=== PATIENT | female | born 1985 | race Caucasian/White ===

== ENCOUNTER 2017-02-19 18:00 | Emergency (ER) | payer OTHER ==
[~2017-02-19] VITALS: Ht 162.6 cm; Wt 81.6 kg
--- NOTE | 2017-02-19 19:07 | RADIOLOGY REPORT ---
EXAMINATION: XR HAND, RIGHT CLINICAL INFORMATION: Right hand pain and swelling. Evaluate for a fracture. COMPARISON: No relevant prior studies are available for comparison. TECHNIQUE: AP, lateral, and oblique views of the right hand. FINDINGS: The bones and soft tissues are normal. No fracture. Alignment is anatomic. Joint spaces are maintained. No erosions or soft tissue calcifications. IMPRESSION: Normal right hand.
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
[2017-02-19] MEDS ORDERED: PANTOPRAZOLE SO40 M1 PO (19:50)
[2017-02-19] MEDS ORDERED: TRAMADOL HCL50 M1 (19:50)
[2017-02-19] MEDS ORDERED: METRONIDAZOLE500 M1 PO (19:51)
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
[2017-02-19] MEDS ORDERED: IBUPROFEN600 M1 PO (20:50)
[2017-02-19] MEDS ORDERED: CYCLOBENZAPRINE10 M1 PO (20:50)
[2017-02-19] MEDS ORDERED: PERCOCET 5-3251 EACH PO (20:50)
[2017-02-19 20:56] VITALS: BP 142/88
== END 2017-02-19 20:57 ==
LOC: ERH 18:00
DX: S16.1XXA Strain of muscle, fascia and tendon at neck level, initial encounter (principal); S63.610A Unspecified sprain of right index finger, initial encounter; V49.40XA Driver injured in collision with unspecified motor vehicles in traffic accident, initial encounter; Y92.411 Interstate highway as the place of occurrence of the external cause
CPT/HCPCS: 72050; 73030-LT; 73130-RT

== ENCOUNTER 2017-04-09 21:33 | Inpatient (IN) | payer OTHER ==
[~2017-04-09] VITALS: Ht 162.6 cm; Wt 80.9 kg
[~2017-04-09 21:33] MED LIST: CYCLOBENZAPRINE10 M1 PO; IBUPROFEN600 M1 PO; METRONIDAZOLE500 M1 PO; PANTOPRAZOLE SO40 M1 PO; PERCOCET 5-3251 EACH PO; TRAMADOL HCL50 M1
--- NOTE | 2017-04-09 21:48 | NUR ---
PT TO ED FOR +SI THOUGHTS "I WAS GOING TO TAKE EVERY PILL I HAD". DENIES HI. DENIES ETOH. LAST USED MARIJUANA YESTERDAY. IS CALM AND COOPERATIVE.
[2017-04-09 21:58] LABS: ABSOLUTE BASOPHIL COUNT 0 /CUMM (0.0-0.2); ABSOLUTE EOSINOPHIL COUNT 0.2 /CUMM (0.0-0.7); ABSOLUTE GRANULOCYTE CT 3.9 /CUMM (1.4-6.5); ABSOLUTE MONOCYTE COUNT 0.6 /CUMM (0.10-0.60); BASOPHIL % 0.5 % (0.0-2.0); EOSINOPHIL % 2.3 % (0-5); GRANULOCYTE % 44.7 % (42.2-75.2); MEAN CORPUSCULAR HGB 27.5 PG (27.0-31.0); MEAN CORPUSCULAR HGB CONC 33.3 G/DL (33.0-37.0); MEAN CORPUSCULAR VOLUME 82.7 FL (81.0-99.0); MEAN PLATELET VOLUME 6.6 FL (7.4-10.4); PLATELET COUNT 267 /CUMM (130-400); RBC DISTRIBUTION WIDTH 17.1 % (11.5-14.5); RED BLOOD CELL CT 4.72 /CUMM (4.20-5.40); WHITE BLOOD CELL COUNT 8.8 /CUMM (4.8-10.8)
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
--- NOTE | 2017-04-09 22:22 | NUR ---
SECURITY AT BEDSIDE.
--- NOTE | 2017-04-09 23:45 | NUR ---
PT MEDICATED WITH MOTRIN 600MG FOR "HEADACHE". DR MONTOYA AT BEDSIDE FOR EVAL
--- NOTE | 2017-04-10 00:29 | NUR ---
BOXED LUNCH PROVIDED TO PT
--- NOTE | 2017-04-10 00:55 | NUR ---
PT MEDICATED WITH BENADRYL 50MG PO SLEEP AID
[2017-04-10] MEDS ORDERED: ULTRAM50 M1 PO (00:57)
--- NOTE | 2017-04-10 02:58 | NUR ---
PT RESTING COMFORTABLY ON STRETCHER. SITTER PRESENT
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
--- NOTE | 2017-04-10 05:09 | NUR ---
PT MED WITH 1 MG PO ATIVAN FOR ANXIETY
--- NOTE | 2017-04-10 06:51 | NUR ---
PATIENT EASILY AROUSABLE FOR VITAL SIGNS, OFFERS NO COMPLAINTS. PENDING PSYCH EVAL IN AM
--- NOTE | 2017-04-10 07:21 | NUR ---
ASSUMED CARE OF PT WHO IS CURRENTLY SLEEPING. RR EVEN AND UNLABORED. SITTER REMAINS AT DOORWAY. PT WAITING FOR CRISIS EVAL.
--- NOTE | 2017-04-10 09:30 | NUR ---
PT AWARE WAITING FOR CRISIS EVALUATION. NO COMPLAINTS AT THIS TIME. SITTER REMAINS IN DOORWAY
--- NOTE | 2017-04-10 11:20 | NUR ---
ASSUMED CARE OF PT FROM BELLE TAMAYO. PT SITTING ON BED CALM AND COOPERATIVE WITH SITTER AT DOOR. PT ASKING WHAT PLAN IS FOR HER. PT REPORTS ANXIETY AND STATES SHE TAKES ATIVAN. WILL MAKE DR WHALEN AWARE.
--- NOTE | 2017-04-10 12:45 | NUR ---
PT REQUESTING PANTOPRAZOLE SO THAT SHE CAN EAT HER LUNCH. DR WHALEN MADE AWARE. PT ALSO RECEIVED A PHONE CALL FROM HER SISTER, SO PT REPORTS THAT HER FAMILY KNOWS WHERE SHE IS AND THAT HER CHILDREN ARE BEING CARED FOR. SITTER AT DOOR.
--- NOTE | 2017-04-10 14:30 | NUR ---
PT MEDICATED WITH PRILOSEC 40MG AND ATIVAN 1MG PO. PT CALM AND COOPERATIVE, ASKING WHEN SHE WOULD BE SEEN BY CRISIS. SITTER AT DOOR.
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
--- NOTE | 2017-04-10 16:10 | NUR ---
PT ASLEEP AT THIS TIME. RESPIRATIONS EQUAL AND UNLABORED AT 16/MINUTE. SITTER AT DOOR.
--- NOTE | 2017-04-10 17:42 | NUR ---
PT ASLEEP IN ROOM 13. WHEN AWAKE, PT IS CALM AND COOPERATIVE. SITTER AT DOOR. RESPIRATIONS EQUAL AND UNLABORED.
--- NOTE | 2017-04-10 19:10 | NUR ---
PT'S BOYFRIEND TO ROOM 13 TO VISIT. PT CALM AND COOPERATIVE. SITTER AT DOOR.
--- NOTE | 2017-04-10 20:28 | NUR ---
PT LYING ON BED WATCHING TV WITH HER BOYFRIEND. PT CALM AND COOPERATIVE. SITTER AT DOOR.
--- NOTE | 2017-04-10 22:37 | NUR ---
PT MEDICATED WITH TRAZODONE 50MG FOR SLEEP. PT RECENTLY SHOWERED AND CHANGED INTO NEW BLUE SCRUBS. PT CALM AND COOPERATIVE. SITTER AT DOOR.
--- NOTE | 2017-04-11 01:17 | NUR ---
PT SLEEPING, REGULAR RESPIRATIONS NOTED, SITTER REMAINS IN ATTENDANCE
--- NOTE | 2017-04-11 03:30 | NUR ---
PT CONTINUES TO SLEEP. SITTER REMAINS IN ATTENDANCE
--- NOTE | 2017-04-11 06:56 | NUR ---
VSS. PT REQUESTING ATIVAN FOR ANXIETY. DR JIMENEZ MADE AWARE
--- NOTE | 2017-04-11 07:11 | NUR ---
PT MEDICATED WITH 40 MG PRILOSEC AND 1 MG ATIVAN PO. REMAINS CALM AND COOPERATIVE. EATING BREAKFAST. SITTER IN ATTENDANCE
--- NOTE | 2017-04-11 07:27 | NUR ---
ASSUMED CARE, AWAKE, EATING BREAKFAST, MEDICATED WITH ATIVAN 1 MG, PRILOSEC 40 MG.
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
--- NOTE | 2017-04-11 10:04 | NUR ---
AWAITING ADMISSION TO [facility].
--- NOTE | 2017-04-11 10:08 | NUR ---
SLEEPING AT PRESENT.
--- NOTE | 2017-04-11 11:00 | NUR ---
PT'S CHILD AND SISTER VISITING.
--- NOTE | 2017-04-11 13:00 | NUR ---
VISITORS AT BEDSIDE.
--- NOTE | 2017-04-11 15:13 | NUR ---
RECIEVED REPORT FROM REBECCA. ASSUMED CARE OF PT
--- NOTE | 2017-04-11 15:16 | NUR ---
NOTIFIED BY [facility] THAT PT ASKING FOR ATIVAN AND SOMETHING FOR HEADACHE. WILL GIVE ULTRAM AND ATIVAN
[2017-04-11 17:11] VITALS: BP 152/95
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
[2017-04-11 19:53] VITALS: BP 139/88
[2017-04-12 07:50] VITALS: BP 117/78
[2017-04-12 12:16] VITALS: BP 137/78
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
--- NOTE | 2017-04-12 13:35 | NUR ---
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 PT ALSO MET WITH DR. BEGUM TODAY FOR H&P, NO OTHER ISSUES OR COMPLAINTS NOTED, OVERALL COMPLIANT WITH TREATMENT AND ADJUSTING WELL TO THE [facility].
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
[2017-04-12 16:29] VITALS: BP 145/88
--- NOTE | 2017-04-12 16:50 | SOCIAL WORKER TX PLAN PSYCH ---
Treatment Plan - Please Document: - Evidence that there is ongoing collaboration between - the patient and the interdisciplinary team, - including the patient's active participation and - responsibility for engaging in the treatment regimen, - and that the treatment plan is individualized and - relevant to the patient's conditions. - Treatment plan should reflect documentation indicating - that all active therapeutic efforts are included. Strengths/Capabilities: Gainfully employed, supportive family, motivated for tx, insightful Physical Limitations (Interventions): none reported DSM5/PS Stressors/Medical Prob Diagnosis' (DSM 5, Stressors, Medical): Unspecified Depression F32.9, cannabis use d/o f12.20 Treatment Team - Responsibilities of members of the treatment team include: - Medication Management- MD or HONING MACHINE OPERATOR - Medication Administration and Monitoring- Nurse - Group Therapy- Occupational Therapist - 1:1 Therapy,Disch Planning,family involvement-Cutlery Grinder
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
--- NOTE | 2017-04-12 18:00 | NUR ---
PT IS CALM, COOPERATIVE WITH STAFF AND PEERS, AND COMPLIANT WITH UNIT RULES. OFTEN IN MILIEU, INTERACTING WELL WITH OTHERS. CAN BE SLIGHTLY WITHDRAWN, BUT STILL INTERACTS WELL. MOOD IS STABLE, AFFECT APPEARS EUTHYMIC TO FULL RANGE - PT COMPLAINS OF SLIGHT ANXIETY. COMMUNICATION IS ORGANIZED AND APPEARS NORMAL IN ALL RESPECTS, AND APPETITE IS NORMAL. PT DENIES SI AT THIS TIME.
[2017-04-12 20:02] VITALS: BP 152/94
[2017-04-13 08:03] VITALS: BP 124/79
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
--- NOTE | 2017-04-13 11:14 | SOCIAL WORKER PROG NOTE PSYCH ---
Social Work Progress Note Progress Note Called [facility] and spoke with the sign out clerk there in an attempt to determine the court date that Bree was referring to for this Sunday. The sign out clerk said she only saw a case scheduled under her ex for 04/27. She suggested she call the family relations dept. for more information. She provided the number, which was given to Bree. Emily Doreen ELAINE and Maria Victoria met together with Bree today. She complained of a headache and some stuffiness. She stated she slept well. Continues to have alot of racing thoughts and anxiety today. This is her main concern. No panic attacks, but stated she was close to having one last night after her visitors left. Her boyfriend and her Father were here visiting. She informed Emily and Maria Victoria that she has her boyfriend Aiden, but she is also involved with a female Andreia. Aiden, Andreia, and Bree are all seeing eachother. She is interested in having her parents, Aiden, and Andreia in for a family meeting. She talked about how she is concerned and on edge constantly for what her ex is doing. She feels that he is always contemplating his next move in order to get the kids from her. During the meeting though, she disclosed that he is not the biological father of her 9 year old daughter. He is not to have contact with her. When asked if she has any SI, thoughts to hurt herself today? She said no. Any thoughts to hurt anyone else? She disclosed she is so angry with her ex that she might hurt him, but not kill him. Emily Katimaria victoria [place] plans to increase her Abilify dose today. Talked about planning a meeting for Sunday if possible and possible discharge Sunday. Discussed possible referral to [facility] for IOP. She signed releases for parents and her 2 significant others. She chose not to sign a release for DCF at this time. Called Aiden and Nidhi, both stated they can see about coming in Sunday around 3 or 3:30pm. Both told me they would get back to me by Sunday morning. Spoke with Bree's Father who will be here Sunday at 3:30pm. He is concerned about her being "rushed out" of here, stating he had never seen her "break down" like this. Bree shared that she spoke with Emanuel Yang at Family Relations and there is a court appt. for Sunday. He would like a letter faxed to [phone] indicating that she is asking for a continuance. This was done. Review done with [facility] [phone] ext [phone]. Authorized until Sunday.
[2017-04-13 12:37] VITALS: BP 145/89
--- NOTE | 2017-04-13 13:12 | NUR ---
PT IS COMPLIANT AND COOPERATIVE WITH UNIT RULES. PT IS OUT IN THE COMMUNITY INTERACTING WELL WITH STAFF AND PEERS. PT MOOD IS STABLE WITH A EUYTHMIC AFFECT. PT WAS TEARFUL THIS MORNING MISSING HER CHILDREN. PT IS ATTENDING GROUPS. PT DENIES SI THGOUGHTS.
[2017-04-13 16:04] VITALS: BP 142/81
[2017-04-13 20:05] VITALS: BP 149/88
--- NOTE | 2017-04-13 21:25 | NUR ---
Pt is out in the community mood is stable affect is full range cooperative and compliant with the staff. Vital signs are stable appetite is good will continue to monitor the pt overnight.
--- NOTE | 2017-04-14 07:44 | NUR ---
PATIENT SLEPT ALL NIGHT UNTIL 0500, AWAKE EARLY.
[2017-04-14 08:23] VITALS: BP 146/90
--- NOTE | 2017-04-14 11:37 | CP SOUTH PROGRESS NOTE PSYCH ---
Psych (Inpt) Progress Note Progress Note Include the following elements, when applicable: Involvement in the active treatment of the patient with behavioral observations of the patient and the patient's response to the treatment. Review of the ongoing treatment process in the context of the treatment plan. Indication of how multi-disciplinary staff members are carrying out the treatment plan. Plans for future interventions and recommendations for revision of the treatment plan. Liaison with other physicians/providers. Progress Note: Notes reviewed, d/w nursing staff. Met with patient this morning. Pleasant, cooperative, anxious appearing. Perseverative on somatic anxiety and increased dose of benzodiazepines. We discussed at length the concern over ad madie benzo use as well as discussed trying neurontin as ordered PRN for anxiety symptoms. She expressed poor mood, was tearful, and frustrated with her family situation. She denies SI/HI as well as AVH. Vitals reviewed - borderline HTN. No new labs today. MSE: adequately groomed CF surrounded by her laundry which she says is currently drying due to dryer being broken. No abn movements, no pmotor agitation/ retardation. Fair eye contact. Speech wnl. Mood "bad, anxious", affect anxious. TP perseverative, TC focused on anxiety and benzos. Denies SI/HI or AVH. Cognition grossly intact. I/J limited-fair. A/P: Ongoing dysphoria and anxiety symptoms. Continue to provide psychoeducation re: limiting benzo use and other therapeutic options for treating anxiety. Continue present management as per primary team.
--- NOTE | 2017-04-14 12:11 | NUR ---
PT REPORTS FEELING MUCH BETTER THAN WHEN SHE FIRST CAME IN. REPORTS LESS ANXIETY AND LESS DEPRESSED. SHE DENIES ANY THOUGHTS OF SUICIDE OR SELF HARM. SHE INTERACTS WITH STAFF AND PEERS IN A CALM AND APPROPRIATE MANNER. SHE IS COMPLIANT WITH HER MED REGIME
[2017-04-14 12:38] VITALS: BP 136/93
[2017-04-14 16:29] VITALS: BP 152/79
--- NOTE | 2017-04-14 18:37 | NUR ---
PT IS CALM, COOPERATIVE WITH STAFF AND PEERS, AND COMPLIANT WITH UNIT RULES. PT IS OFTEN IN MILIEU, INTERACTING WELL WITH OTHERS. MOOD IS STABLE, AFFECT APPEARS EUTHYMIC TO FULL RANGE, COMMUNICATION IS ORGANIZED AND APPEARS NORMAL IN ALL RESPECTS, AND APPETITE IS NORMAL. PT DENIES SI AT THIS TIME.
[2017-04-14 19:49] VITALS: BP 142/86
--- NOTE | 2017-04-15 06:53 | NUR ---
PATIENT SLEPT ALL NIGHT.
[2017-04-15 07:44] VITALS: BP 125/74
--- NOTE | 2017-04-15 11:36 | NUR ---
PT VISIBLE IN THE MILIEU TODAY. HER GOAL WAS TO DECREASE ANXIETY. PT HAS BEEN PARTICIPATING IN GROUPS, AND INTERACTING POSITIVELY WITH PEERS. PT IS PLEASANT AND COOPERATIVE, SHE DENIES THOUGHTS TO HURT HERSELF WHEN ASKED.
[2017-04-15 12:10] VITALS: BP 143/92
--- NOTE | 2017-04-15 13:28 | CP SOUTH PROGRESS NOTE PSYCH ---
Psych (Inpt) Progress Note Progress Note Include the following elements, when applicable: Involvement in the active treatment of the patient with behavioral observations of the patient and the patient's response to the treatment. Review of the ongoing treatment process in the context of the treatment plan. Indication of how multi-disciplinary staff members are carrying out the treatment plan. Plans for future interventions and recommendations for revision of the treatment plan. Liaison with other physicians/providers. Progress Note: Notes reviewed, d/w nursing staff. Met with patient this morning. Highly dysphoric and anxious. Had spoken with her daughter this morning by phone and reports her daughter is angry with her and wants her to pick her up from the patient's [facility] in [place]. PErseverative regarding court custody case that is pending with her ex . "I just feel like I'm going to explode". REports vague SI without plan or intent - mostly expresses a feeling that "everyone would be better off if I wasn't around", denies HI. Vitals reviewed - borderline HTN. No new labs today. MSE: tearful, adequately groomed CF resting on bed, no pmotor agitation/ retardation. Fair eye contact. Speech wnl. Mood "I feel like I'm going to explode", affect anxious. TP perseverative, TC focused on feelings of failure. Vague SI as noted above. Denies HI or AVH. Cognition grossly intact. I/J limited -fair. A/P: Substantial ongoing depressive and anxious symptoms with ongoing vague SI though no plan or intent to harm self on unit. Continue current management.
[2017-04-15 16:04] VITALS: BP 148/96
--- NOTE | 2017-04-15 16:07 | NUR ---
Patient is A&O X 3, compliant with medication and group therapies. Patient is present in the community interacts appropriately with other peers and staff members, mood is stable for the most period but could be labile/ tearful while relating the reason for her present hospitalization and court date with her ex-. vital sign is stable and WNL, patient denies any thought of self- harm and to someone else.
--- NOTE | 2017-04-15 17:51 | NUR ---
PT IS CALM, COOPERATIVE WITH STAFF AND PEERS,A ND COMPLIANT WITH UNIT RULES. BOTH IN AND OUT OF MILIEU, PT SOMETIMES LEAVES MILEIU TO REST IN PT ROOM. WHILE IN MILIE[facility], PT INTERACTS WELL WITH OTHERS. MOOD IS STABLE, AFFECT APPEARS EUTHYMIC TO FULL RANGE, COMMUNICATION IS ORGANIZED AND APPEARS NORMAL IN ALL RESPECTS, AND APPETITE IS REDUCED. PT DENIES IS AT THIS TIME.
[2017-04-15 19:51] VITALS: BP 148/85
[2017-04-16 07:51] VITALS: BP 131/93
--- NOTE | 2017-04-16 11:06 | SOCIAL WORKER PROG NOTE PSYCH ---
Social Work Progress Note Progress Note Bree came to me immediately upon my arrival. She was anxious about the court meeting this morning. I assured her that I faxed a letter and got a confirmation. She talked about wanting to leave today and feeling ready to do that. She said that she is having a hard time with childcare for her son. I confirmed that her Father, Step Mother, Aiden, and Nidhi are all coming to the supportive meeting here today at 3:30pm. Bree and I discussed aftercare options. She was open to a referral with [facility] in [place]. Her and I completed the referral together. It was faxed over. I called and followed up with the [facility] to see if they could give an appt. for intake. I was asked to fax over additional clinical and then it would be passed on to their admission's coordinator who would call me to schedule an intake. Bree called the court this morning and she was told that they didn't receive the letter I faxed Sunday. She was tearful and extremely concerned that her ex would get her children. I encouraged her to calm down and offered my assistance in refaxing the letter. Showed her the confirmation from Sunday. Faxed and then called [facility]. Spoke with the resort desk clerk, who indicated that she was 99% sure the case was going to be continued and that Bree should call on Sunday to get the new date. Informed Bree of this, but she didn' t seem relieved. She stated she was "beyond" worked up. Again, encouraged her to focus on what was just said and not think the worst. [facility] scheduled an appt. with Dr. Bowman for 04/23 at 4pm and 04/25 11:30am with Lois Kowalski LCSW. Family meeting held with Dad, Step Mother, and significant others Aiden and Nidhi. All were very supportive of Bree in terms of helping her in any way possible. Bree spent time during the meeting reviewing her goals and recovery plan. She identified specific coping tools to try and use and is really going to try and work on asking for help. She expressed her appreciation of her family and is trying to work on focusing on the positive. Bree was discharged after the family meeting.
[2017-04-16 12:14] VITALS: BP 143/79
--- NOTE | 2017-04-16 12:56 | NUR ---
PT IS COMPLIANT AND COOPERATIVE WITH UNIT RULES. PT IS OUT IN THE COMMUNITY ITNERACTING WELL WITH STAFF AND PEERS. PT REPORTS SOME ANXIETY THIS MORNING ABOUT DISCHARGE AND FAMILY MEETING TODAY AT 1530. PT IS A POSSIBLE DISCHARGE FOR TODAY AFTER FAMILY MEETING. PT MOOD IS STABLE WITH A FULL RANGE AFFECT. PT DENIES SI THOGUTHS.
[2017-04-16] MEDS ORDERED: ABILIFY10 M1 PO (14:51)
[2017-04-16] MEDS ORDERED: TRAZODONE HCL150 M1 PO (14:51)
[2017-04-16] MEDS ORDERED: NICOTINE PATCH1 EAC1 TOP (14:51)
[2017-04-16] MEDS ORDERED: MINIPRESS1 MG PO (14:51)
[2017-04-16] MEDS ORDERED: KLONOPIN1 M1 PO ×2 (14:51→15:07)
[2017-04-16] MEDS ORDERED: GABAPENTIN600 M1 PO (14:51)
[2017-04-16] MEDS ORDERED: SERTRALINE HCL50 MG PO (14:51)
--- NOTE | 2017-04-16 15:04 | NUR ---
PT IS SCHEDULED FOR DISCHARGE TODAY, NO ISSUES OR COMPLAINTS REPORTED OR OBSERVED, IS PRESENT WITHIN THE [facility]IEU AND APPROPRIATE WITH PEERS AND STAFF, ATTENDING GROUPS, MOOD STABLE WITH FULL RANGE AFFECT. INFORMATION PACKETS RE: DEPRESSION AND SI GIVEN & PT RESOURCE GUIDE AND W-10 REVIEWED WITH NO QUESTIONS, VERBALIZED UNDERSTANDING RE: ABOVE. WHEN ASKED DIRECTLY DENIES SI/HI/HALLUCINATIONS AND IS FUTURE ORIENTED, + UNDERSTANDING RE: FOLLOW-UP INSTRUCTIONS AND REPORTS + COPING AND SUPPORT SYSTEMS. PT REPORTS AN OVERALL IMPROVEMENT IN MOOD/MENTAL STATUS/BEHAVIOR AND STABLE AND FEELS SAFE FOR DISCHARGE.
--- NOTE | 2017-04-16 15:15 | DISCHARGE SUMMARY REPORT-PSYCH ---
Visit Information Visit Dates/Diagnosis' Admission Date: 04/11/17 Discharge Date: 04/16/17 Reason for Admission: Suicidal ideation Psy Discharge Primary Diag: Unspecified depressive disorder Psy Discharge Secondary Diag: PTSD; R/O Unspecified mood disorder; Cannabis use disorder; GERD Hospital Course Course Allergies: Coded Allergies: No Known Allergies (02/19/17) Discharge HBIPS - Tobacco Use Treatment Offered - EtOH/Drug Use D/O Treatment Offered Metabolic Screening - Screen if on a Neuroleptic Medication - Metabolic screening should include: - Blood Pressure, BMI, Glucose or Hgb A1c, & a - Lipid profile from within the past 365 days.
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
== END 2017-04-16 16:30 | DRG 881 ==
LOC: ERH 21:33 → CP SOUTH 04-11 09:00 → ERHI 04-11 09:00 → ENRESERV 04-11 16:00 → ENTRNSPT 04-11 16:24 → CP SOUTH 04-11 16:38 → EDTRNSPT 04-11 16:41 → CMPTRNSPT 04-11 16:45 → CP SOUTH 04-12 19:37
PROVIDERS: Emergency Medicine; Internal Medicine; ADMIT Psychiatry & Neurology Addiction Medicine
DX: F32.9 Major depressive disorder, single episode, unspecified (principal); F43.10 Post-traumatic stress disorder, unspecified; K21.9 Gastro-esophageal reflux disease without esophagitis
CPT/HCPCS: 36415; 80307; 81001; 81025; 93005; 93010; G0463; G0480; J0401